=== PATIENT | female | born 1990 | race Caucasian/White ===

== ENCOUNTER 2025-04-05 10:00 | Emergency (ER) | payer SELFPAY ==
[~2025-04-05] VITALS: Ht 172.7 cm; Wt 75.0 kg
[2025-04-05 10:02] VITALS: O2SAT 99
[2025-04-05] MEDS: SODIUM CHLORIDE 0.9% 1,000 ML IV ONE (10:30)
[2025-04-05 10:50] LABS: HEMATOCRIT. 38.4 % (36.0-48.0); HEMOGLOBIN. 12.4 g/dL (12.0-16.0); MEAN PLATELET VOLUME 8.1 fl (7.4-10.4); PLATELET 271 x1000/uL (130-400); RED BLOOD CELL COUNT 4.64 mill/uL (4.2-5.4); RED CELL DISTRIBUTION WIDTH 15.0 % (11.6-14.6)
[2025-04-05 11:05] LABS: CREATININE 0.8 mg/dL (0.6-1.0); UREA NITROGEN BLOOD 6 mg/dL (9-23)
[2025-04-05 11:17] LABS: HCG SCREEN NEGATIVE
[2025-04-05] MEDS: ACETAMINOPHEN 325MG TABLET PO ONE (11:18)
[2025-04-05] MEDS ORDERED: IBUP-2029 MT (11:40)
[2025-04-05] MEDS ORDERED: LIDO454G TP (11:40)
[2025-04-05 13:10] LABS: BAND% 2.0 % (1.0-6.0); EOSINOPHILS % MANUAL 1.0 % (0.0-5.0); LYMPHOCYTES % MANUAL 8.0 % (20.0-60.0); MONOCYTES % MANUAL 6.0 % (2.0-8.0); NEUTROPHILS % MANUAL 83.0 % (45.0-75.0)
[2025-04-05 13:11] LABS: PLATELET ESTIMATE NORMAL
[2025-04-05 14:25] VITALS: BP 129/81; PULSE 87; RESP 18; TEMP 36.8; O2SAT 100
== END 2025-04-05 14:37 | disposition home or self-care (01) ==
LOC: ER 10:18
DX: T20.10XA Burn of first degree of head, face, and neck, unspecified site, initial encounter (principal); L55.9 Sunburn, unspecified; X08.8XXA Exposure to other specified smoke, fire and flames, initial encounter; Y93.89 Activity, other specified; Y92.89 Other specified places as the place of occurrence of the external cause; Y99.8 Other external cause status
CPT/HCPCS: 80048; 82550; 84703; 85025; 36415; 71045; 96360; 99284; J7030; Z7610

== ENCOUNTER 2025-04-06 01:21 | Emergency (ER) | payer SELFPAY ==
[~2025-04-06] VITALS: Ht 170.2 cm; Wt 91.0 kg
[~2025-04-06 01:21] MED LIST: IBUP-2029 MT; LIDO454G TP
[2025-04-06 01:37] VITALS: O2SAT 100
[2025-04-06] MEDS ORDERED: SODIUM CHLORIDE 0.9% 100 ML IV ONE (04:00)
[2025-04-06] MEDS ORDERED: KETOROLAC 15MG/ML VIAL IM ONE (04:00)
[2025-04-06] MEDS: KETOROLAC 15MG/ML VIAL IV ONE (04:46)
[2025-04-06] MEDS: SODIUM CHLORIDE 0.9% 1,000 ML IV ONE (04:49)
[2025-04-06 07:07] VITALS: BP 137/98; PULSE 91; RESP 18; TEMP 36.9; O2SAT 100
== END 2025-04-06 07:08 | disposition home or self-care (01) ==
LOC: ER 01:42
DX: T20.10XA Burn of first degree of head, face, and neck, unspecified site, initial encounter (principal); Z98.890 Other specified postprocedural states; X58.XXXA Exposure to other specified factors, initial encounter; Y93.89 Activity, other specified; Y92.89 Other specified places as the place of occurrence of the external cause; Y99.8 Other external cause status
CPT/HCPCS: 99283; 96360; 96361; J1885; J7050; J7030